=== PATIENT | female | born 1930 | race Caucasian/White ===

== ENCOUNTER 2017-06-26 16:09 | Inpatient (IN) | END 2017-07-07 20:00 | DRG 191 ==

== ENCOUNTER 2017-07-07 20:27 | Inpatient (IN) | END 2017-07-19 11:35 | disposition home or self-care (01) | DRG 948 ==

== ENCOUNTER 2017-07-30 12:24 | Inpatient (IN) | END 2017-08-18 17:23 | DRG 190 ==